=== PATIENT | female | born 1985 | race Caucasian/White ===

== ENCOUNTER 2017-01-19 10:34 | Emergency (ER) | payer SELFPAY ==
[~2017-01-19 10:34] MED LIST: MOTRIN-DPS800 MG PO; NIPPLECREAM TP; PRENATAL VIT1 TAB PO; TYLENOL #3 DPS1 TAB PO
--- NOTE | 2017-02-23 07:35 | ER ---
ADMIT: 01/19/2017 RM/LOC: ER [facility] MR#: [id number] [address] [id number] LARIOSAMILCAR Ruth [address] [place] [address] Emergency Room Report SEX: F AGE: 31 : 1985 DATE: 01/19/2017 CHIEF COMPLAINT: Right shoulder pain. HISTORY OF PRESENT ILLNESS: The patient is a 31-year-old female, who is complaining of right shoulder pain without any obvious trauma from one day ago. She states it is worse when she moves it, but has good sensation distally. She has had no previous injuries to this shoulder. She had no other complaints at this time. PAST MEDICAL HISTORY: Negative for any chronic diseases. She has had a tubal ligation. MEDICATIONS: None. ALLERGIES: SULFA. SOCIAL HISTORY: Denies smoking, drug, or alcohol use. PHYSICAL EXAMINATION: GENERAL: The patient is alert, oriented, no distress. HEAD: Atraumatic. HEART: Regular rate and rhythm. LUNGS: Clear to auscultation. EXTREMITIES: Examination of right shoulder reveals she has some limited range of motion in the right arm secondary to pain. She has no deformity that I can appreciate. She is neurovascularly distal to the shoulder. She has no problems with range of motion of the elbow or wrist. IMAGING: X-ray of the right shoulder reveals no acute abnormality. EMERGENCY DEPARTMENT COURSE: The patient was given a shot of Toradol in the emergency department and she did not want any narcotic pain medication. She does want to make sure there is no fractures or dislocation. She is discharged home with instructions to use ibuprofen 600 mg to 800 mg 3 times a day for the next 5 days and take with food. She is to rest also and avoid activities that exacerbate her pain. She is to follow up with Dr. Washington in 1 to 1-1/2 weeks if not showing significant improvement. DIAGNOSIS: Right shoulder sprain. Jason Suggs MD/ natalie JOB #: [id number] CC: Jason Sgugs MD, Attending Physician Kristopher Washington MD, Family Physician
== END 2017-01-19 12:00 | disposition home or self-care (01) ==
LOC: ER 10:34
DX: S43.401A Unspecified sprain of right shoulder joint, initial encounter (principal); Z88.2 Allergy status to sulfonamides; X58.XXXA Exposure to other specified factors, initial encounter